=== PATIENT | male | born 2005 | race Caucasian/White ===

== ENCOUNTER 2023-05-27 15:20 | Emergency (ER) | payer OTHER ==
[2023-05-27 15:53] VITALS: BP 98/60; O2SAT 98
[2023-05-27] MEDS ORDERED: ONDANSETRON ODT 4 MG TABLET TL STA (16:40)
[2023-05-27 16:52] LABS: B. PARAPERTUSSIS- RESP PCR PAN NOT DETECTED; B. PERTUSSIS- RESP PCR PANEL NOT DETECTED; C. PNEUMONIAE- RESP PCR PANEL NOT DETECTED; CORONAVIRUS 229E-RESP PCR NOT DETECTED; CORONAVIRUS HKU1-RESP PCR NOT DETECTED; CORONAVIRUS NL63-RESP PCR NOT DETECTED; CORONAVIRUS OC43-RESP PCR NOT DETECTED; HUMAN METAPNEUMOVIRUS NOT DETECTED; INFLUENZA A- RESP PCR PANEL NOT DETECTED; INFLUENZA B - RESP PCR PANEL NOT DETECTED; M. PNEUMONIAE- RESP PCR PANEL NOT DETECTED; PARAINFLUENZA VIRUS 1 NOT DETECTED; PARAINFLUENZA VIRUS 2 NOT DETECTED; PARAINFLUENZA VIRUS 3 NOT DETECTED; PARAINFLUENZA VIRUS 4 NOT DETECTED; RHINOVIRUS/ENTEROVIRUS NOT DETECTED; RSV- RESP PCR PANEL NOT DETECTED; SARS-CoV-2 -RESP PCR PANEL NOT DETECTED
--- NOTE | 2023-05-27 16:57 | ED Physician Documentation ---
History of Present Illness - Stated complaint Stated Complaint: VOMITING/FATIGUE - Chief complaint Chief Complaint: Heent - History obtained from History obtained from: Patient - Additonal information Additional information: Patient is a 18-year-old male presenting for evaluation of nausea vomiting and diarrhea for the past several days. Patient states that his symptoms started 2 days ago with multiple loose stools. Yesterday he started feeling achy all over and still had some diarrhea. Today the diarrhea has stopped but he has had several episodes of emesis. He said he vomited up water and other liquids he return to drink earlier along with a banana. He was seen at [facility]. He had another episode of emesis there so they advised to come to the emergency department. He has since been able to tolerate water. He has not received any medications yet today. He took ibuprofen for a headache which has improved. Denies any known sick contacts. Has not taken a COVID test. Review of Systems Constitutional: denies: Fever Cardiac: denies: Chest pain / pressure Respiratory: denies: Dyspnea GI: reports: Nausea, Vomiting. denies: Abdominal Pain, Bloody / black stool : denies: Dysuria Neurologic: reports: Headache PD PAST MEDICAL HISTORY - Past Medical History Past Medical History: No Cardiovascular: None Respiratory: None Neuro: None Endocrine/Autoimmune: None GI: None : None HEENT: None Psych: None Musculoskeletal: None Derm: None - Past Surgical History Past Surgical History: No - Present Medications Home Medications: Ambulatory Orders Medication Instructions Recorded Confirmed Ondansetron Odt [Zofran] 4 mg TL Q6H PRN #10 tablet 05/27/23 - Allergies Allergies/Adverse Reactions: Allergies Allergy/AdvReac Type Severity Reaction Status Date / Time No Known Drug Allergies Allergy Verified 05/27/23 15:47 - Social History Does the pt smoke?: No Smoking Status: Never smoker Does the pt drink ETOH?: No Does the pt have substance abuse?: No - Immunizations Immunizations are current?: Yes - POLST Patient has POLST: No PD ED PE NORMAL - General General: Alert and oriented X 3, No acute distress, Well developed/nourished - HEENT HEENT: Atraumatic, Moist mucous membranes, Pharynx benign - Neck Neck: Supple, no meningeal sign - Cardiac Cardiac: RRR, No murmur - Respiratory Respiratory: No respiratory distress, Clear bilaterally - Abdomen Abdomen: Normal bowel sounds, Soft, Non tender, Non distended - Derm Derm: Warm and dry - Neuro Neuro: Normal speech Results - Vitals Vitals: Vital Signs - 24 hr 05/27/23 15:36 Temperature 37.6 C Heart Rate 97 Respiratory 18 Rate Blood Pressure 98/60 O2 Saturation 98 Oxygen O2 Source Room air - Labs Labs: Laboratory Tests 05/27/23 15:44 Nasal Adenovirus (PCR) NOT DETECTED Nasal B. parapertussis DNA (PCR) NOT DETECTED Nasal Coronavir 229E PCR NOT DETECTED Nasal Coronavir HKU1 PCR NOT DETECTED Nasal Coronavir NL63 PCR NOT DETECTED Nasal Coronavir OC43 PCR NOT DETECTED Nasal Enterovir/Rhinovir PCR NOT DETECTED Nasal Influenza B PCR NOT DETECTED Nasal Influenza A PCR NOT DETECTED Nasal Parainfluen 1 PCR NOT DETECTED Nasal Parainfluen 2 PCR NOT DETECTED Nasal Parainfluen 3 PCR NOT DETECTED Nasal Parainfluen 4 PCR NOT DETECTED Nasal RSV (PCR) NOT DETECTED Nasal B.pertussis DNA PCR NOT DETECTED Nasal C.pneumoniae (PCR) NOT DETECTED Haile Human Metapneumo PCR NOT DETECTED Nasal M.pneumoniae (PCR) NOT DETECTED Nasal SARS-CoV-2 (PCR) NOT DETECTED PD Medical Decision Making - ED course Complexity details: re-evaluated patient ED course: Patient is a 18-year-old male presenting for evaluation of 2 days of diarrhea and vomiting starting today. His vital signs are stable. His abdominal exam is benign. He was sent from [facility] as he had an episode of emesis there. I offered IV fluids with medication but patient declines would prefer to try oral route. He was able to tolerate p.o. intake after oral Zofran. He does appear to be able to hydrate himself orally at this time. Repeat abdominal exam remains benign.Suspect viral etiology. Respiratory swab was obtained at triage and is negative. Patient counseled on continued supportive care as well as strict return precautions for any worsening symptoms. Departure - Departure Disposition: 01 Home, Self Care Clinical Impression: Nausea vomiting and diarrhea Condition: Stable Instructions: ED Diet Vomiting Diarrhea Prescriptions: Ondansetron Odt [Zofran] 4 mg TL Q6H PRN #10 tablet PRN Reason: Nausea / Vomiting Comments: Your symptoms are likely related to a viral process. I have sent a prescription for an antiemetic nausea medication to [facility] in [place]. Please use this medication as directed. Please continue to stay hydrated with small amounts of fluids frequently. Start with bland foods and then advance her diet as tolerated. Return to the emergency department with any worsening symptoms such as the development of abdominal pain or difficulty in keeping down fluids despite the use of the antinausea medication. Forms: PCP List, Activity restrictions Discharge Date/Time: 05/27/23 17:52
== END 2023-05-27 17:52 | disposition home or self-care (01) ==
LOC: ED 15:20
DX: R11.2 Nausea with vomiting, unspecified (principal); R19.7 Diarrhea, unspecified; Z20.822 Contact with and (suspected) exposure to COVID-19
CPT/HCPCS: 87633; 99283; Q0162